=== PATIENT | male | born 1995 | race Caucasian/White ===

== ENCOUNTER 2022-10-24 13:49 | Outpatient (CLI) | payer OTHER, SELFPAY ==
[2022-10-24 22:07] LABS: Albumin* 4.2 g/dL (3.3-5.0); Chloride* 106 mmol/L (96-114)
[2022-10-24 22:08] LABS: Potassium* 3.5 mmol/L (3.6-5.1); Sodium* 140 mmol/L (135-149)
[2022-10-24 22:10] LABS: Alkaline Phosphatase* 138 U/L (40-150); Aspartate Amino Transferase* 14 U/L (12-35); Bilirubin Total* 1.2 mg/dL (0.1-1.5); Blood Urea Nitrogen* 5 mg/dL (5-24); Carbon Dioxide* 17 mmol/L (20-32); Cholesterol* 135 mg/dL (90-199); Creatinine* 0.5 mg/dL (0.5-1.5); Estimated Glomerular Filt Rate 143 ml/min; Glucose* 310 mg/dL (60-115); Total Protein* 7.1 g/dL (6.0-8.3); Triglycerides* 257 mg/dL (40-149)
[2022-10-24 22:11] LABS: Alanine Aminotransferase* 15 U/L (4-50); Calcium* 9.2 mg/dL (8.4-10.6); HDL Cholesterol* 18 mg/dL (>=40); LDL Cholesterol Calculated 66 mg/dL (<100)
== END 2022-10-24 13:50 | disposition home or self-care (01) ==
PROVIDERS: Visit Provider Family Medicine
DX: R73.09 Other abnormal glucose (principal); L03.114 Cellulitis of left upper limb
CPT/HCPCS: 80053; 80061

== ENCOUNTER 2022-11-13 08:20 | Outpatient (CLI) | payer OTHER, SELFPAY ==
[2022-11-13 13:45] LABS: Total Protein Urine 11 mg/dL
[2022-11-13 13:51] LABS: Microalbumin Urine 1 mg/dL
[2022-11-13 13:55] LABS: Creatinine Urine 62.8 mg/dL; Microalbumin Creatinine Ratio 10 mg/g (0-30)
== END 2022-11-13 08:21 | disposition home or self-care (01) ==
PROVIDERS: Visit Provider Family Medicine
DX: E11.9 Type 2 diabetes mellitus without complications (principal)
CPT/HCPCS: 82043; 82570; 84156

== ENCOUNTER 2023-11-24 06:58 | Outpatient (CLI) | payer OTHER, SELFPAY | END 2023-11-24 06:59 | disposition home or self-care (01) | PROVIDERS: PCP Family Medicine; Visit Provider Family Medicine | DX: E11.9 Type 2 diabetes mellitus without complications (principal); R39.12 Poor urinary stream; Z79.85 Long-term (current) use of injectable non-insulin antidiabetic drugs; Z12.5 Encounter for screening for malignant neoplasm of prostate; Z13.220 Encounter for screening for lipoid disorders | CPT/HCPCS: 80053; 80061; 82043; 82570; G0103 ==

== ENCOUNTER 2024-03-15 07:48 | Outpatient (CLI) | payer OTHER, SELFPAY | END 2024-03-15 07:49 | disposition home or self-care (01) | LOC: FRMREF 07:49 | PROVIDERS: PCP Family Medicine; Visit Provider Family Medicine | DX: R79.89 Other specified abnormal findings of blood chemistry (principal) | CPT/HCPCS: 80053 ==

== ENCOUNTER 2024-09-26 08:56 | Outpatient (CLI) | payer OTHER, SELFPAY | END 2024-09-26 08:57 | disposition home or self-care (01) | LOC: FRMREF 08:57 | PROVIDERS: PCP Family Medicine; Visit Provider Family Medicine | DX: E11.9 Type 2 diabetes mellitus without complications (principal); R79.89 Other specified abnormal findings of blood chemistry | CPT/HCPCS: 80053 ==

== ENCOUNTER 2025-01-09 17:00 | Outpatient (CLI) | payer OTHER, SELFPAY | END 2025-01-09 17:01 | disposition home or self-care (01) | LOC: FRMREF 17:00 | PROVIDERS: PCP Family Medicine; Visit Provider Family Medicine | DX: I49.9 Cardiac arrhythmia, unspecified (principal) | CPT/HCPCS: 86140 ==

== ENCOUNTER 2025-07-20 09:49 | Outpatient (CLI) | payer OTHER, SELFPAY | END 2025-07-20 09:50 | disposition home or self-care (01) | PROVIDERS: PCP Family Medicine; Visit Provider Family Medicine | DX: E11.9 Type 2 diabetes mellitus without complications (principal); R79.89 Other specified abnormal findings of blood chemistry | CPT/HCPCS: 80053; 80061; 82043; 82570 ==

== ENCOUNTER 2025-08-21 08:50 | Outpatient (CLI) | payer OTHER, SELFPAY ==
--- NOTE | 2025-09-05 11:44 | W.PM.SLEEP ---
Sleep Study Details Details Interpreting Provider: Brannon Date of Sleep Study: 08/21/25 Sleep Study Details: STUDY TYPE:? Home unattended ? BMI:? 51.74 ORDERING PROVIDER:Nba Munoz INDICATION:? Concern for sleep apnea ? SLEEP SUMMARY:? 148 minutes monitored RESPIRATORY SUMMARY:? AHI 73.4 per rule 1A, 64.5 per CMS guideline Low oxygen 83 10.9% of study oxygen less than 90% Snoring 3.6% PERIODIC LIMB MOVEMENTS OF SLEEP:? Not recorded CARDIAC:? Range 59-97, mean 74.8 beats per minute IMPRESSION:? Severe obstructive sleep apnea RECOMMENDATION: Treatment options include CPAP or bilevel. Weight loss is also recommended
== END 2025-08-21 08:51 | disposition home or self-care (01) ==
LOC: SLEEP 08:51
PROVIDERS: PCP Family Medicine; Visit Provider Family Medicine
DX: G47.33 Obstructive sleep apnea (adult) (pediatric) (principal)
CPT/HCPCS: 95806